=== PATIENT | female | born 2000 | race African-American/Black ===

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

== ENCOUNTER 2023-08-19 17:19 | Emergency (ER) | payer MEDICAID, OTHER ==
[~2023-08-19] VITALS: Ht 152.4 cm; Wt 53.0 kg
[2023-08-19 17:30] VITALS: BP 170/91; PULSE 67; RESP 20; TEMP 98.1; O2SAT 99
== END 2023-08-19 20:53 | disposition home or self-care (01) ==
LOC: ER 17:28
DX: M25.532 Pain in left wrist (principal); M79.631 Pain in right forearm; J45.909 Unspecified asthma, uncomplicated; V49.9XXA Car occupant (driver) (passenger) injured in unspecified traffic accident, initial encounter; Y93.89 Activity, other specified; Y92.89 Other specified places as the place of occurrence of the external cause; Y99.8 Other external cause status
CPT/HCPCS: 73090; 73110; 99284